=== PATIENT | female | born 1965 | race Caucasian/White ===

== ENCOUNTER 2016-12-19 15:50 | Emergency (ER) | payer BC, OTHER ==
[~2016-12-19] VITALS: Ht 162.6 cm; Wt 49.0 kg
[~2016-12-19 15:50] MED LIST: AMLO10TA2 PO; CYPR4TAB PO; ESTR1PAT10 TP; HYDR25TA9 PO; LEVE500T56 PO; LIDO700A4 TP; METO100T11 PO; MTH/1CAP PO; OXCA600T PO; POTA20TA12 PO; TERB250T PO; TOPI200T25 PO
[2016-12-19 17:17] VITALS: BP 193/105
[2016-12-19] MEDS ORDERED: HYDROCODONE/APAP 5/325MG TABLET. PO ONE (17:45)
[2016-12-19] MEDS ORDERED: HYDR-2666 PO (18:00)
--- NOTE | 2016-12-19 18:00 | PHYS DOC ---
Past Medical History Past Medical History: COPD, High Cholesterol, Hypertension, Hypothyroid, Seizure Past Surgical History: , Hysterectomy Additional Past Surgical Histo: vagal nerve stimulator Alcohol Use: None Drug Use: None Adult General Chief Complaint Chief Complaint: RIB PAIN [facility] HPI Patient is a 51 year old female who presents with from urgent care for left chest wall pain. She had a seizure last night and fell hitting her left chest wall. She has severe left lateral chest wall pain that is worse with thorax range of motion or breathing. Pain is achy and sharp. Fluctuates in intensity, but is constant. She denies difficulty breathing, cough, headache, head injury, neck pain, back pain, extremity pain, abdominal pain, nausea or vomiting, fever or chills. She did not sleep well last night due to the pain. She did not receive any pain medication from urgent care, but came with a CD of her x-rays. Review of Systems Review of Systems Constitutional: Denies fever or chills [] Eyes: Denies change in visual acuity, redness, or eye pain [] HENT: Denies nasal congestion or sore throat [] Respiratory: Denies cough or shortness of breath [] Cardiovascular: No additional information not addressed in HPI [] GI: Denies abdominal pain, nausea, vomiting, bloody stools or diarrhea [] : Denies dysuria or hematuria [] Musculoskeletal: Denies back pain or joint pain [] Integument: Denies rash or skin lesions [] Neurologic: Denies headache, focal weakness or sensory changes [] Endocrine: Denies polyuria or polydipsia [] Current Medications Current Medications Current Medications Medications (Trade) Dose Ordered Sig/[facility] Start Time Stop Time Status Last Admin Dose Admin Acetaminophen/ Hydrocodone Bitart (Lortab 5/325) 2 tab 1X ONCE 12/19/16 17:45 12/19/16 17:46 DC 12/19/16 17:42 2 TAB Allergies Allergies Allergies Coded Allergies Type Severity Reaction Last Updated Verified No Known Drug Allergies 03/21/15 No Physical Exam Physical Exam Constitutional: Well developed, well nourished, no acute distress, non-toxic appearance. [] HENT: Normocephalic, atraumatic, bilateral external ears normal, oropharynx moist, nose normal. [] Eyes: PERRLA, EOMI. [] Neck: Normal range of motion, supple. [] Cardiovascular:Heart rate regular rhythm [] Lungs & Thorax: Bilateral breath sounds clear to auscultation. Left anterior lateral lower chest wall tenderness with no visual or palpable abnormality other than minimal ecchymosis [] Abdomen: Bowel sounds normal, soft, no tenderness. [] Skin: Warm, dry, no erythema, no rash. [] Back: No tenderness, no CVA tenderness. [] Extremities: No tenderness, ROM intact, no edema. [] Neurologic: Alert and oriented X 3, normal motor function, normal sensory function, no focal deficits noted. [] Psychologic: Affect normal, judgement normal, mood normal. [] Current Patient Data Vital Signs Vital Signs Date Time Temp Pulse Resp B/P Pulse Ox O2 Delivery O2 Flow Rate FiO2 12/19/16 17:17 98.5 57 20 193/105 93 Room Air 98.5 Radiology/Procedures Radiology/Procedures Outside x-rays as interpreted by me showing a minimally displaced left rib fracture, no pneumothorax or hemothorax, otherwise no acute cardiopulmonary disease process Course & Med Decision Making Course & Med Decision Making Pertinent Labs and Imaging studies reviewed. (See chart for details) She was given incentive spirometer and taught how to use it. Will give pain medicine as well. Encouraged PCP follow-up closely. Return precautions given. She understands and agrees with plan. Dragon Disclaimer Dragon Disclaimer This electronic medical record was generated, in whole or in part, using a voice recognition dictation system. Departure Departure Impression: Primary Impression: Left rib fracture Disposition: HOME, SELF-CARE Condition: STABLE Referrals: PRETTY STRICKLAND MD (PCP) Patient Instructions: Incentive Spirometer, Rib Fracture, [id number] Additional Instructions: Take Tylenol or ibuprofen as needed for moderate pain. Take hydrocodone as needed for severe pain. Do not drink, drive or operate heavy machinery after taking hydrocodone as it may make you sleepy. Follow-up with your primary care doctor. Return for any concerns. Scripts Hydrocodone Bit/Acetaminophen (Hydrocodone-Apap 5-325 )1 Each Tablet1-2 Tab PO PRN Q4HRS PRN PAIN #20 TAB Prov:Daron AUGUSTINE MD 12/19/16 Problem Qualifiers Primary Impression: Left rib fracture Encounter type: initial encounter Rib fracture type: multiple ribs Fracture type: closed Qualified Code: S22.42XA - Multiple fractures of ribs, left side, initial encounter for closed fracture Daron AUGUSTINE MD Dec 19, 2016 18:00
== END 2016-12-19 19:56 | disposition home or self-care (01) ==
LOC: ER 15:50
DX: S22.42XA Multiple fractures of ribs, left side, initial encounter for closed fracture (principal); J44.9 Chronic obstructive pulmonary disease, unspecified; E78.00 Pure hypercholesterolemia, unspecified; I10 Essential (primary) hypertension; E03.9 Hypothyroidism, unspecified; X58.XXXA Exposure to other specified factors, initial encounter; Y93.89 Activity, other specified; Y92.89 Other specified places as the place of occurrence of the external cause; Y99.8 Other external cause status
CPT/HCPCS: 99284

== ENCOUNTER → 2017-06-27 | Outpatient (CLI) | payer BC ==
[~2017-06-27] MED LIST changes: +HYDR-2758 PO
--- NOTE | 2017-06-28 08:48 | RAD ---
DATE: 06/28/2017 EXAM: MAMMO MORENA SCREENING BILATERAL HISTORY: 52-year-old female for routine screening mammogram. COMPARISON: Previous mammogram from 2016 and 2014 This study was interpreted with the benefit of Computerized Aided Detection (CAD). FINDINGS: Breast Density: DENSE The breast Parenchyma is dense, which could reduce the sensitivity of mammography. Breast parenchyma level density D.. No suspicious calcifications, spiculated mass or architectural distortion. The nipples and skin are within normal limits. IMPRESSION: No mammographic evidence of malignancy. Stable mammogram. BI-RADS CATEGORY: 1 NEGATIVE RECOMMENDED FOLLOW-UP: 12M 12 MONTH FOLLOW-UP PQRS compliance statement: Patient information was entered into a reminder system with a target due date 06/28/2018 for the next mammogram. Mammography is a sensitive method for finding small breast cancers, but it does not detect them all and is not a substitute for careful clinical examination. A negative mammogram does not negate a clinically suspicious finding and should not result in delay in biopsying a clinically suspicious abnormality. "Our facility is accredited by the [employer] Mammography [employer]."
== END | disposition home or self-care (01) ==
LOC: KCIC MAMMO 13:39
PROVIDERS: ATTEND Obstetrics & Gynecology
DX: Z12.31 Encounter for screening mammogram for malignant neoplasm of breast (principal)
CPT/HCPCS: 77063; G0202; 77067

== ENCOUNTER → 2018-06-30 | Outpatient (CLI) | payer BC ==
[~2018-06-30] MED LIST changes: -CYPR4TAB PO; +CYPR4TAB31 PO; +METO-247 PO; -METO100T11 PO
--- NOTE | 2018-06-30 15:35 | KCIC ---
Exam: 3 view right knee x-ray HISTORY: Pain since a fall in April. FINDINGS: A total 3 images of the right knee were obtained. Moderate-sized knee joint effusion is present. Joint spaces are normal. No acute fracture or bone destruction. Soft tissues are unremarkable. There are no fractures or findings of bony destruction. No degenerative changes. IMPRESSION: Joint effusion. Electronically signed by: Abel Peralta MD (06/30/2018 3:32 PM) [facility] [place]
== END | disposition home or self-care (01) ==
LOC: KCIC 15:03
PROVIDERS: ATTEND Internal Medicine
DX: M25.461 Effusion, right knee (principal); I12.9 Hypertensive chronic kidney disease with stage 1 through stage 4 chronic kidney disease, or unspecified chronic kidney disease; N18.2 Chronic kidney disease, stage 2 (mild); E03.9 Hypothyroidism, unspecified; J44.9 Chronic obstructive pulmonary disease, unspecified; E78.00 Pure hypercholesterolemia, unspecified; Z72.0 Tobacco use; Z98.890 Other specified postprocedural states; Z90.710 Acquired absence of both cervix and uterus
CPT/HCPCS: 73562

== ENCOUNTER → 2020-05-26 | Outpatient (CLI) | payer OTHER ==
[~2020-05-26] MED LIST changes: -AMLO10TA2 PO; +AMLO10TA8 PO; +HYDR-2145 PO; -HYDR-2758 PO; +HYDR-2761 PO; -HYDR25TA9 PO; -OXCA600T PO; +OXCA600T9 PO
--- NOTE | 2020-05-26 14:46 | KCIC ---
INDICATION: Osteoporosis screening. Postmenopausal screening COMPARISON: None. TECHNIQUE: Bone densitometry was performed through the lumbar spine and proximal femur. FINDINGS: Lumbar Spine: BMD: 1.1 T-Score: 0.6 Proximal Femur: BMD: 0.7 T-Score: -2.0 IMPRESSION: 1. Lumbar spine falls within the normal range. 2. Proximal femur falls within the osteopenic range. Electronically signed by: Terry Leonard MD (05/26/2020 2:43 PM) [id number]
--- NOTE | 2020-05-26 15:04 | KCIC ---
Bilateral digital screening mammograms with 3-D tomosynthesis: Reason for examination: Routine screening. Comparison is made to previous studies dated back to 01/23/2015. Bilateral mammograms in CC and oblique projections were obtained with 2-D imaging and 3-D tomosynthesis imaging on a Siemens Inspiration unit and reviewed on the workstation. Interpretation was made with the benefit of CAD. The skin and nipples show no abnormalities. No abnormal axillary lymph nodes are seen. The breast parenchyma is extremely dense. (Breast density: Category D.) There are no dominant masses, suspicious calcifications or architectural distortion. A few punctate calcifications are seen. Impression: No evidence of malignancy. Recommend routine screening. Your patient's mammogram demonstrates that she has dense breast tissue (breast density category C or D), which could hide abnormalities, and if she has other risk factors for breast cancer that have been identified, she might benefit from supplemental screening tests that may be suggested by you as her ordering physician. Dense breast tissue, in and of itself, is a relatively common condition. Therefore, this information is not provided to cause undue concern, but rather to raise your awareness and to promote discussion with your patient regarding the presence of other risk factors, in addition to dense breast tissue. Your patient's mammography results will be sent to her. BI-RAD Category 2: Benign. "Our facility is accredited by the [employer] Mammography Program." This patient's information has been entered into a reminder system for the patient to be notified with the results of her examination and a target date for the next mammogram. Electronically signed by: Eri Collins MD (05/26/2020 3:01 PM) [id number]
== END | disposition home or self-care (01) ==
LOC: KCIC DEXA 12:47
PROVIDERS: ATTEND Obstetrics & Gynecology
DX: Z12.31 Encounter for screening mammogram for malignant neoplasm of breast (principal); Z01.419 Encounter for gynecological examination (general) (routine) without abnormal findings; M85.88 Other specified disorders of bone density and structure, other site
CPT/HCPCS: 77063; 77067; 77080

== ENCOUNTER → 2020-07-11 | Outpatient (CLI) | payer OTHER ==
--- NOTE | 2020-07-11 17:07 | KCIC ---
EXAM: HIP RIGHT 2V WITH PELVIS, RIGHT FEMUR, 2 VIEWS. HISTORY: Right hip and femoral pain. COMPARISON: None. FINDINGS: No fractures are identified. There is mildly decreased femoral head/neck offset anteriorly on the right. The joint spaces of both hips are maintained. Limited images of the right knee reveal grossly maintained joint spaces. There are surgical clips in the right lower quadrant. IMPRESSION: 1. Correlate for femoroacetabular impingement anteriorly on the right. Electronically signed by: Rafa Mireles MD (07/11/2020 5:04 PM) [id number]
== END | disposition home or self-care (01) ==
LOC: KCIC 14:05
PROVIDERS: ATTEND Internal Medicine
DX: M25.551 Pain in right hip (principal); M79.651 Pain in right thigh; Z98.890 Other specified postprocedural states
CPT/HCPCS: 73502; 73552

== ENCOUNTER 2021-06-17 14:01 | Emergency (ER) | payer OTHER ==
[~2021-06-17] VITALS: Ht 162.6 cm; Wt 46.0 kg
[~2021-06-17 14:01] MED LIST changes: +AMLO-187 PO; -AMLO10TA8 PO
[2021-06-17] MEDS ORDERED: IV NORMAL SALINE 1000ML BAG 1,650 ML IV SCH (16:00)
[2021-06-17] MEDS: MORPHINE SULFATE 2 MG/ML INJ. IV/SQ PRN ×2 (16:40→18:09)
[2021-06-17 16:42] LABS: BASO # 0.1 x10^3/uL (0.0-0.2); BASO % 0 % (0-3); EOS # 0.1 x10^3/uL (0.0-0.7); EOS % 0 % (0-3); HEMATOCRIT 45.6 % (36.0-47.0); HEMOGLOBIN 15.4 g/dL (12.0-15.5); LYMPH # 0.4 x10^3/uL (1.0-4.8); LYMPH % 3 % (24-48); MEAN CORPUSCULAR HEMOGLOBIN 30 pg (25-35); MEAN CORPUSCULAR HGB CONC 34 g/dL (31-37); MEAN CORPUSCULAR VOLUME 90 fL (79-100); MONO # 0.6 x10^3/uL (0.0-1.1); MONO % 3 % (0-9); NEUT # 15.4 x10^3/uL (1.8-7.7); NEUT % 93 % (31-73); PLATELET COUNT 187 x10^3/uL (140-400); RED BLOOD COUNT 5.09 x10^6/uL (3.50-5.40); RED CELL DISTRIBUTION WIDTH 14.1 % (11.5-14.5); WHITE BLOOD COUNT 16.5 x10^3/uL (4.0-11.0)
[2021-06-17 16:53] LABS: BILIRUBIN,URINE NEGATIVE (NEG); CLARITY,URINE CLOUDY; COLOR,URINE GREEN; NITRITE,URINE NEGATIVE (NEG); PH,URINE 6.5 (<5.0-8.0); PROTEIN,URINE 100 mg/dL (NEG-TRACE); UROBILINOGEN,URINE 0.2 mg/dL (0.2 mg/dL)
[2021-06-17 16:56] LABS: CALCIUM 8.9 mg/dL (8.5-10.1); CREATININE 0.9 mg/dL (0.6-1.0); GFR 64.3
[2021-06-17 17:02] LABS: ALBUMIN 3.6 g/dL (3.4-5.0); ALBUMIN/GLOBULIN RATIO 0.8 (1.0-1.7); TOTAL BILIRUBIN 0.3 mg/dL (0.2-1.0); TOTAL PROTEIN 7.9 g/dL (6.4-8.2)
[2021-06-17 17:03] LABS: BACTERIA,URINE 0 /HPF (0-FEW); WBC,URINE TNTC /HPF (0-4)
[2021-06-17 17:34] LABS: % BANDS 3 % (0-9); % EOS 2 % (0-5); % LYMPHS 1 % (24-48); % MONOS 6 % (0-10); % SEGS 88 % (35-66); PLT ESTIMATE ADEQUATE (ADEQUATE)
--- NOTE | 2021-06-17 17:59 | RAD ---
Exam: CT of abdomen and pelvis without contrast INDICATION: Abdominal pain TECHNIQUE: Sequential axial images through the abdomen and pelvis obtained without IV contrast. Sagit marlena and coronal reformatted images were reconstructed from the axial data and reviewed. Exposure: One or more of the following in the visualized dose reduction techniques were utilized for this examination: 1. Automated exposure control 2. Adjustment of the MA and/or KV according to patient size 3. Use of iterative of reconstructive technique Comparisons: None FINDINGS: Heart size is normal. No pericardial effusion. There is a 1.4 cm nodule at the left lower lobe series 2 image 12. No pleural effusion or thickening. Evaluation of the solid organs is limited secondary to noncontrast technique. Liver, spleen, pancreas and adrenals are unremarkable. Gallbladder is absent. No perinephric inflammation or hydronephrosis. No ureteral calculi are identified. Nonobstructing rig ht renal calculus noted. Bladder is decompressed not well evaluated. Uterus is absent. No abnormal adnexal mass. Large and small bowel are unremarkable. Appendix is nonidentified. No free intra-abdominal air or flu id. No obstruction. Abdominal aorta has normal course and caliber. No enlarged abdominal lymph nodes are identified. No suspicious osseous lesions or acute fractures. IMPRESSION: 1. Nonobstructing right renal calculus. No ureteral calculi or evidence for obstructive uropathy. 2. A 1.4 cm nodule at the left lower lobe which is new from 2016. This is concerning for a neoplasm. Recommend correlation with PET/CT and/or follow-up chest CT in 3 months to reassess. Electronically signed by: Curt Ho MD (06/17/2021 5:57 PM) [facility]
[2021-06-17 18:07] VITALS: BP 168/79
--- NOTE | 2021-06-17 18:29 | PHYS DOC ---
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 Patient states she is diagnosed with a UTI 3 weeks ago but did not get on antibiotics until yesterday when her doctor called in Macrobid for her. Patient states she has been taking the Macrobid since yesterday with no improvement. She is complaining of 8 out of 10 periumbilical's pain. Describes the pain as sharp and intermittent. Denies any nausea vomiting. She is also complaining of urgency, frequency and dysuria. (MIKE HARVEY LICENSED CHEMICAL SPRAY TECHNICIAN) Review of Systems: Review of Systems: Constitutional: Denies fever or chills. [] Eyes: Denies change in visual acuity. [] HENT: Denies nasal congestion or sore throat. [] Respiratory: Denies cough or shortness of breath. [] Cardiovascular: Denies chest pain or edema. [] GI: Reports periumbilical pain, denies nausea, vomiting, bloody stools or diarrhea. [] : Reports dysuria, urgency and frequency Musculoskeletal: Denies back pain or joint pain. [] Integument: Denies rash. [] Neurologic: Denies headache, focal weakness or sensory changes. [] Psychiatric: Denies depression or anxiety. [] (MIKE HARVEY LICENSED CHEMICAL SPRAY TECHNICIAN) Heart Score: C/O Chest Pain: N/A Risk Factors: Risk Factors: DM, Current or recent (<one month) smoker, HTN, HLP, family history of CAD, obesity. Risk Scores: Score 0 - 3: 2.5% MACE over next 6 weeks - Discharge Home Score 4 - 6: 20.3% MACE over next 6 weeks - Admit for Clinical Observation Score 7 - 10: 72.7% MACE over next 6 weeks - Early Invasive Strategies (MIKE HARVEY LICENSED CHEMICAL SPRAY TECHNICIAN) Current Medications: Current Medications Medications (Trade) Dose Ordered Sig/Karlo Start Time Stop Time Status Last Admin Dose Admin Morphine Sulfate (Morphine Sulfate) 2 mg PRN Q15MIN PRN 06/17/21 16:00 06/18/21 15:59 06/17/21 18:09 2 MG Sodium Chloride 1,650 ml @ 1,650 mls/hr Q1H 06/17/21 16:00 06/17/21 16:40 1,650 MLS/HR (MIKE HARVEY LICENSED CHEMICAL SPRAY TECHNICIAN) Allergies: Allergies: Allergies Coded Allergies Type Severity Reaction Last Updated Verified No Known Drug Allergies 03/21/15 No (MIKE HARVEY LICENSED CHEMICAL SPRAY TECHNICIAN) Physical Exam: PE: Constitutional: Well developed, well nourished, no acute distress, non-toxic appearance. [] HENT: Normocephalic, atraumatic, bilateral external ears normal, oropharynx moist, no oral exudates, nose normal. [] Eyes: PERRLA, EOMI, conjunctiva normal, no discharge. [] Neck: Normal range of motion, no tenderness, supple, no stridor. [] Cardiovascular:Heart rate regular rhythm, no murmur [] Lungs & Thorax: Bilateral breath sounds clear to auscultation [] Abdomen: Bowel sounds normal, soft, no tenderness, no masses, no pulsatile masses. [] Skin: Warm, dry, no erythema, no rash. [] Back: No tenderness, no CVA tenderness. [] Extremities: No tenderness, no cyanosis, no clubbing, ROM intact, no edema. [] Neurologic: Alert and oriented X 3, normal motor function, normal sensory function, no focal deficits noted. [] Psychologic: Affect normal, judgement normal, mood normal. [] (MIKE HARVEY LICENSED CHEMICAL SPRAY TECHNICIAN) Current Patient Data: Labs: Laboratory Tests Test 06/17/21 16:30 White Blood Count 16.5 x10^3/uL (4.0-11.0) H Red Blood Count 5.09 x10^6/uL (3.50-5.40) Hemoglobin 15.4 g/dL (12.0-15.5) Hematocrit 45.6 % (36.0-47.0) Mean Corpuscular Volume 90 fL (79-100) Mean Corpuscular Hemoglobin 30 pg (25-35) Mean Corpuscular Hemoglobin Concent 34 g/dL (31-37) Red Cell Distribution Width 14.1 % (11.5-14.5) Platelet Count 187 x10^3/uL (140-400) Neutrophils (%) (Auto) 93 % (31-73) H Lymphocytes (%) (Auto) 3 % (24-48) L Monocytes (%) (Auto) 3 % (0-9) Eosinophils (%) (Auto) 0 % (0-3) Basophils (%) (Auto) 0 % (0-3) Neutrophils # (Auto) 15.4 x10^3/uL (1.8-7.7) H Lymphocytes # (Auto) 0.4 x10^3/uL (1.0-4.8) L Monocytes # (Auto) 0.6 x10^3/uL (0.0-1.1) Eosinophils # (Auto) 0.1 x10^3/uL (0.0-0.7) Basophils # (Auto) 0.1 x10^3/uL (0.0-0.2) Segmented Neutrophils % 88 % (35-66) H Band Neutrophils % 3 % (0-9) Lymphocytes % 1 % (24-48) L Monocytes % 6 % (0-10) Eosinophils % 2 % (0-5) Platelet Estimate Adequate (ADEQUATE) Urine Collection Type Unknown Urine Color Green Urine Clarity Cloudy Urine pH 6.5 (<5.0-8.0) Urine Specific Zamora 1.020 (1.000-1.030) Urine Protein 100 mg/dL (NEG-TRACE) Urine Glucose (UA) Negative mg/dL (NEG) Urine Ketones (Stick) Negative mg/dL (NEG) Urine Blood Large (NEG) Urine Nitrite Negative (NEG) Urine Bilirubin Negative (NEG) Urine Urobilinogen Dipstick 0.2 mg/dL (0.2 mg/dL) Urine Leukocyte Esterase Moderate (NEG) Urine RBC 6-10 /HPF (0-2) Urine WBC Tntc /HPF (0-4) Urine Squamous Epithelial Cells Mod /LPF Urine Bacteria 0 /HPF (0-FEW) Urine Mucus Mod /LPF Sodium Level 129 mmol/L (136-145) L Potassium Level 4.0 mmol/L (3.5-5.1) Chloride Level 95 mmol/L (98-107) L Carbon Dioxide Level 23 mmol/L (21-32) Anion Gap 11 (6-14) Blood Urea Nitrogen 16 mg/dL (7-20) Creatinine 0.9 mg/dL (0.6-1.0) Estimated GFR (Cockcroft-Gault) 64.3 BUN/Creatinine Ratio 18 (6-20) Glucose Level 138 mg/dL (70-99) H Lactic Acid Level 1.6 mmol/L (0.4-2.0) Calcium Level 8.9 mg/dL (8.5-10.1) Total Bilirubin 0.3 mg/dL (0.2-1.0) Aspartate Amino Transferase (AST) 33 U/L (15-37) Alanine Aminotransferase (ALT) 25 U/L (14-59) Alkaline Phosphatase 86 U/L (46-116) Total Protein 7.9 g/dL (6.4-8.2) Albumin 3.6 g/dL (3.4-5.0) Albumin/Globulin Ratio 0.8 (1.0-1.7) L Laboratory Tests 06/17/21 16:30 Laboratory Tests 06/17/21 16:30 Vital Signs: Vital Signs Date Time Temp Pulse Resp B/P (MAP) Pulse Ox O2 Delivery O2 Flow Rate FiO2 06/17/21 18:09 18 97 06/17/21 18:07 107 168/79 (108) Room Air 06/17/21 15:43 100.5 100.5 (MIKE HARVEY APRN) EKG: EKG: [] (MIKE HARVEY APRN) Radiology/Procedures: Radiology/Procedures: []PROCEDURE: CT ABDOMEN PELVIS WO CONTRAST Exam: CT of abdomen and pelvis without contrast INDICATION: Abdominal pain TECHNIQUE: Sequential axial images through the abdomen and pelvis obtained without IV contrast. Sagittal and coronal reformatted images were reconstructed from the axial data and reviewed. Exposure: One or more of the following in the visualized dose reduction techniques were utilized for this examination: 1. Automated exposure control 2. Adjustment of the MA and/or KV according to patient size 3. Use of iterative of reconstructive technique Comparisons: None FINDINGS: Heart size is normal. No pericardial effusion. There is a 1.4 cm nodule at the left lower lobe series 2 image 12. No pleural effusion or thickening. Evaluation of the solid organs is limited secondary to noncontrast technique. Liver, spleen, pancreas and adrenals are unremarkable. Gallbladder is absent. No perinephric inflammation or hydronephrosis. No ureteral calculi are identified. Nonobstructing right renal calculus noted. Bladder is decompressed not well evaluated. Uterus is absent. No abnormal adnexal mass. Large and small bowel are unremarkable. Appendix is nonidentified. No free intra-abdominal air or fluid. No obstruction. Abdominal aorta has normal course and caliber. No enlarged abdominal lymph nodes are identified. No suspicious osseous lesions or acute fractures. IMPRESSION: 1. Nonobstructing right renal calculus. No ureteral calculi or evidence for obstructive uropathy. 2. A 1.4 cm nodule at the left lower lobe which is new from 2016. This is concerning for a neoplasm. Recommend correlation with PET/CT and/or follow-up chest CT in 3 months to reassess. Electronically signed by: Curt Benjamin MD (06/17/2021 5:57 PM) [facility] DICTATED and SIGNED BY: CURT BENJAMIN MD DATE: 06/17/21 [id number] 0 (MIKE HARVEY APRN) Course & Med Decision Making: Course & Med Decision Making Pertinent Labs and Imaging studies reviewed. (See chart for details) This is a 56-year-old female patient presented to the ED today complaining of periumbilical abdominal pain with urgency frequency and dysuria. Patient was diagnosed with UTI 3 weeks ago and started on Macrobid yesterday. She states she has no improvement to symptoms Vitals on arrival to the ED temperature 100.5, heart rate 102, respiration 20, blood pressure 183/89, O2 sats 95% on room air. CBC with a WBC of 16.5, CMP with sodium of 129. Urine noted for moderate amount of leukocytes. CT of the abdomen and pelvic was noted for nonobstructing right renal calculus. No ureteral calculi or evidence for obstructive uropathy. A 1.4 cm nodule at the left lower lobe which is new from 2016. This is concerning for a neoplasm. Recommend correlation with PET/CT and/or follow-up chest CT in 3 months to reassess. Results were communicated to patient and . She is adamant refusing to be admitted. She states she would like to go home. She is alert oriented x4 and able to make her own decisions. Instructed her to increase her sodium intake. Discharged on Cipro. Also given prescription for Pyridium and hydrocodone for pain. Follow-up with her urologist and PCP in the course of this week. Encouraged to return to the ED at any point symptoms worsen. She was also instructed to follow-up with her PCP for the lung nodule (MIKE HARVEY APRN) Course & Med Decision Making Patients Care and treatment plan provided by ER Nurse Practitioner. I was available for consult. Patient's chart reviewed. (VERÓNICA KOENIG I DO) Dragon Disclaimer: Dragon Disclaimer: This electronic medical record was generated, in whole or in part, using a voice recognition dictation system. (MIKE HARVEY APRN) Departure Departure Impression: Primary Impression: Acute cystitis Qualified Codes: N30.01 - Acute cystitis with hematuria Additional Impressions: Fever Qualified Codes: R50.9 - Fever, unspecified Hyponatremia Lung nodule Disposition: HOME / SELF CARE / HOMELESS Condition: STABLE Referrals: PRETTY STRICKLAND MD (PCP) follow up in the course of this week Patient Instructions: Fever, Adult, Hyponatremia, Urinary Tract Infection Additional Instructions: You were evaluated in the emergency room, you have a bladder infection. Please take the prescribed antibiotics until completed. Take the pain medicine as needed for pain. You are running a fever, take ibuprofen as needed for fever. You can take Tylenol for fever but remember you have Tylenol in the hydrocodone so do not take more than 4000 mg of Tylenol per day. Your sodium is also running low, increase your dietary sodium intake through foods like chips. He also have a mass in your lung showing up on your CAT scan. This needs to be followed up with your primary care doctor for outpatient work-up Scripts Hydrocodone Bit/Acetaminophen (HYDROCODONE-APAP 5-325 ) 1 Tab Tablet 1 TAB PO PRN Q6HRS PRN for PAIN, #14 TAB 0 Refills Prov: MIKE HARVEY APRN 06/17/21 Phenazopyridine Hcl (PYRIDIUM) 100 Mg Tablet 1 TAB PO TID for urinary discomfort for 2 Days, #6 TAB 0 Refills Prov: MIKE HARVEY APRN 06/17/21 Ciprofloxacin Hcl (CIPRO) 500 Mg Tablet 1 TAB PO BID for 7 Days, #14 TAB 0 Refills Prov: MIKE HARVEY APRN 06/17/21 MIKE HARVEY APRN Jun 17, 2021 18:29 VERÓNICA KOENIG DO Jun 21, 2021 18:10
[2021-06-17] MEDS ORDERED: CIPR500T94 PO (18:38)
[2021-06-17] MEDS ORDERED: HYDR-2761 PO (18:38)
[2021-06-17] MEDS ORDERED: PHEN100T82 PO (18:38)
== END 2021-06-17 18:52 | disposition home or self-care (01) ==
LOC: ER 14:01
DX: N30.01 Acute cystitis with hematuria (principal); E87.1 Hypo-osmolality and hyponatremia; R91.1 Solitary pulmonary nodule; J44.9 Chronic obstructive pulmonary disease, unspecified; E78.00 Pure hypercholesterolemia, unspecified; I10 Essential (primary) hypertension; E03.9 Hypothyroidism, unspecified; G40.909 Epilepsy, unspecified, not intractable, without status epilepticus; F17.200 Nicotine dependence, unspecified, uncomplicated
CPT/HCPCS: 36415; 74176; 80053; 81001; 83605; 84145; 85007; 85025; 87040; 87086; 96374; 96376; 99285; J2270; J7030

== ENCOUNTER → 2021-07-17 | Outpatient (CLI) | payer OTHER ==
[2021-06-17 18:07] VITALS: BP 168/79
[~2021-07-17] MED LIST changes: +BRIV100T PO; +CIPR500T94 PO; +LISI10TA16 PO; +LISI5TAB15 PO; +PHEN100T82 PO
--- NOTE | 2021-07-24 14:00 | OP ---
DATE OF SURGERY: 07/17/2021 ATTENDING PHYSICIAN: Aureliano Jerome MD The patient underwent a spirometry revealing an FEV1/FVC ratio of 94.28. FEV1 was 82% of predicted at 1.98 liters. FVC was 2.10 liters or 67% of predicted. Lung volumes were not completed. Diffusion capacity was preserved. IMPRESSION: 1. Spirometry revealing no evidence of airflow limitation. 2. Lung volumes not performed. 3. Diffusion capacity was preserved. GERALDO DR: Joy TID: [id number]
== END ==
LOC: PF 10:45
PROVIDERS: ATTEND Internal Medicine Pulmonary Disease
DX: R91.8 Other nonspecific abnormal finding of lung field (principal)
CPT/HCPCS: 94010; 94729

== ENCOUNTER → 2021-07-20 | Outpatient (CLI) | payer OTHER ==
[~2021-07-20] MED LIST changes: -BRIV100T PO; -LISI10TA16 PO; -LISI5TAB15 PO
--- NOTE | 2021-07-20 13:43 | RAD ---
EXAM: Dual modality PET-CT Scan DATE: 07/20/2021 RADIOPHARMACEUTICAL: 15 mCi F-18 fluorodeoxyglucose (FDG) IV. CLINICAL HISTORY: Left lower lobe pulmonary nodule. COMPARISON: CT dated 06/17/2021. TECHNIQUE: Approximately 45 minutes after tracer administration, routine, attenuation-corrected Posit azul Emission Tomography (PET) images were obtained from the level of the base of the skull through th e level of the mid thighs. Tomographic reconstructions are reviewed in coronal, transaxial and sagitt al planes. Non-contrast CT imaging was performed for attenuation correction and localization purpose s only. These images do not constitute a diagnostic-quality CT examination and were not used to diag nose disease independently of the PET images. The blood glucose level was 92 mg/dL at the time of FDG administration. *One or more of the following individualized dose reduction techniques were utilized for this examina tion: 1. Automated exposure control. 2. Adjustment of the mA and/or kV according to patient size. 3. Use of iterative reconstruction technique. FINDINGS: There is increased radiotracer activity within SUV of 4.8 associated with a 1.4 cm left low er lobe pulmonary nodule, the appearance of which favors neoplasm. There is also increased radiotrace r activity associated with a 1.9 cm nodule with surrounding groundglass within the superior segment o f the left lower lobe with an SUV of 4.0. There is increased radiotracer activity within SUV of 2.1 w ithin a 9 mm spiculated right upper lobe pulmonary nodule. There is mild increased radiotracer activi ty associated with tiny groundglass nodular opacities within the right lower lobe with an SUV of 1.3, likely infectious in etiology. There is no significant radiotracer activity above the blood pool ass ociated with prominent mediastinal and hilar lymph nodes. There is no additional abnormal radiotracer activity. The CT portion of the exam demonstrates a 1.4 cm left lower lobe pulmonary nodule. There is a 1.9 cm nodular opacity with surrounding groundglass within the superior segment of the left lower lobe. Ther e is a 9 mm spiculated nodule within the superior right upper lobe. There is lingular and medial righ t middle lobe and left basilar atelectasis or scarring. There are tiny groundglass opacities within t he medial right lower lobe. There is emphysema with biapical pleural parenchymal scarring. The heart is upper normal in size. There is aortic and coronary artery atherosclerosis. There are pro minent mediastinal lymph nodes. For reference purposes, there is a 1.3 cm right paratracheal lymph no de. There is a heterogeneous thyroid containing calcifications. There is a left chest wall generator with vagal nerve stimulator leads overlying the left neck. There is calcified plaque involving the ca rotid bifurcations. Evaluation of the skull base and visualized portions of the inferior brain are unremarkable. No neck lymphadenopathy is seen. No hepatic lesion is seen. The gallbladder is absent. The pancreas, spleen a nd stomach are unremarkable. There is thickening of the left adrenal gland without a discrete nodule. There are tiny nonobstructing right renal stones. There is a large amount of stool within the colon. The urinary bladder is distended. The uterus is absent. There are degenerative changes involving the spine. No suspicious or acute osseous finding is seen. IMPRESSION: 1. Radiotracer avid 1.4 cm left lower lobe pulmonary nodule with an SUV of 4.8. The lesion configurat ion and degree of radiotracer activity favors malignancy. 2. Radiotracer avid 1.9 cm nodular opacity with surrounding groundglass within the superior segment o f the left lower lobe with an SUV of 4.0. This may also be neoplastic. However, the possibility of an infectious etiology is not excluded. 3. Radiotracer avid 9 mm spiculated nodule within the right upper lobe with an SUV of 2.1. This degre e of radiotracer activity in a nodule of this size and the nodule configuration favors malignancy. 4. Mild radiotracer activity within SUV of 1.3 associated with tiny groundglass opacities within the right lower lobe, the appearance of which favors an infectious etiology. Correlate for pneumonia/pneu monitis. 5. No significant radiotracer activity associated with prominent mediastinal or hilar lymph nodes. 6. Emphysema with biapical pleural parenchymal scarring. 7. Please refer to the above report for additional findings regarding the non-PET portion of the exam . Electronically signed by: Olamide Waldrop MD (07/20/2021 1:41 PM) [id number]
== END ==
LOC: PETSC 09:17
PROVIDERS: ATTEND Internal Medicine Pulmonary Disease
DX: R91.8 Other nonspecific abnormal finding of lung field (principal); J43.9 Emphysema, unspecified; I70.0 Atherosclerosis of aorta; I25.10 Atherosclerotic heart disease of native coronary artery without angina pectoris; M47.819 Spondylosis without myelopathy or radiculopathy, site unspecified; Z90.49 Acquired absence of other specified parts of digestive tract; Z90.710 Acquired absence of both cervix and uterus; F17.210 Nicotine dependence, cigarettes, uncomplicated
CPT/HCPCS: 78815; A9552

== ENCOUNTER 2021-08-02 08:12 | Outpatient (CLI) | payer OTHER ==
[~2021-08-02] VITALS: Ht 160 cm; Wt 50.0 kg
[2021-08-02] VITALS (17 sets, daily range): BP systolic 136–186; BP diastolic 74–99
[2021-08-02] MEDS ORDERED: LIDOCAINE WITH 8.4% SOD BICARB 3 ML DISP.SYRIN. ONE (09:38)
[2021-08-02] MEDS ORDERED: MIDAZOLAM HCL/PF 2 MG/2 ML VIAL. ONE (09:43)
[2021-08-02] MEDS ORDERED: fentaNYL PF VIAL 100 MCG/2 ML VIAL ONE (09:43)
[2021-08-02 09:47] LABS: BASO # 0.1 x10^3/uL (0.0-0.2); BASO % 2 % (0-3); EOS # 1.3 x10^3/uL (0.0-0.7); EOS % 18 % (0-3); HEMATOCRIT 36.5 % (36.0-47.0); HEMOGLOBIN 12.2 g/dL (12.0-15.5); LYMPH # 1.7 x10^3/uL (1.0-4.8); LYMPH % 24 % (24-48); MEAN CORPUSCULAR HEMOGLOBIN 30 pg (25-35); MEAN CORPUSCULAR HGB CONC 34 g/dL (31-37); MEAN CORPUSCULAR VOLUME 88 fL (79-100); MONO # 0.8 x10^3/uL (0.0-1.1); MONO % 12 % (0-9); NEUT # 3.1 x10^3/uL (1.8-7.7); NEUT % 44 % (31-73); PLATELET COUNT 349 x10^3/uL (140-400); RED BLOOD COUNT 4.13 x10^6/uL (3.50-5.40); RED CELL DISTRIBUTION WIDTH 14.5 % (11.5-14.5)
[2021-08-02 10:00] LABS: PROTHROMBIN TIME PATIENT 12.3 SEC (11.7-14.0)
[2021-08-02] MEDS ORDERED: LISI10TA16 PO (10:15)
[2021-08-02] MEDS ORDERED: BRIV100T PO (10:17)
[2021-08-02 10:30] LABS: % EOS 14 % (0-5); % LYMPHS 29 % (24-48); % MONOS 8 % (0-10); % SEGS 49 % (35-66)
[2021-08-02 10:31] LABS: PLT ESTIMATE ADEQUATE (ADEQUATE); TARGET CELLS OCC
[2021-08-02] MEDS ORDERED: MIDAZOLAM HCL/PF 2 MG/2 ML VIAL. IV ONE (10:45)
[2021-08-02] MEDS ORDERED: fentaNYL PF VIAL 100 MCG/2 ML VIAL IV ONE (10:45)
[2021-08-02] MEDS ORDERED: LIDOCAINE WITH 8.4% SOD BICARB 3 ML DISP.SYRIN. IJ ONE (10:45)
[2021-08-02] MEDS ORDERED: LISI-517 PO (11:02)
--- NOTE | 2021-08-02 14:09 | NUR ---
Patient discharged to home accompanied by spouse. All discharge instructions reviewed with client and spouse. Pt verbalized an understanding. PIV site removed without difficulty. No respiratory distress noted. All personal belonging taken, pt escorted to front entrance per w/c to private vehicle.
--- NOTE | 2021-08-03 08:00 | RAD ---
CT-guided biopsy, left lower lobe select nodule 08/02/2021 INDICATION: Left lower lobe nodule. COMPARISON STUDY: PET/CT July 20, 2021 Consent: The procedure was explained in its entirety to the patient or the patients designated repres entative by a member of the treatment team, including a discussion of the risks, benefits and commonl y accepted alternatives to the procedure, as well as the expected consequences of no therapy whatsoev er. Discussion of the risks included, but was not limited to, those that are most frequent and thos e that are rare but possibly severe or life-threatening, as well as the possibility of unforeseen com plications. Discussion: The patient was brought to the CT scanner and placed in the supine position. A timeout pr ocedure was performed. 1% lidocaine was administered for local anesthesia. CT imaging was performed r edemonstrating a rounded nodule left lower lobe grossly unchanged from comparison study. Under interm ittent CT guidance a 17-gauge needle was advanced to the periphery of the nodule. Core biopsy was obt ained. The patient had episodic coughing following biopsy and imaging demonstrated a mild to moderate perilesional hemorrhage with obscuration of the nodule. No additional biopsies were performed. The n eedle was removed. Repeat CT imaging demonstrates similar perilesional hemorrhage without evidence of pneumothorax. Sterile dressings were applied. The procedures performed under conscious sedation including continuous cardiopulmonary monitoring via a dedicated sedation nurse. Dpzv-ak-cdic sedation time 33 minutes IMPRESSION: CT-guided biopsy, left lower lobe nodule. CT DOSING PQRS STATEMENT: One or more of the following individualized dose reduction techniques were utilized for this examinat ion: 1. Automated exposure control 2. Adjustment of the mA and/or kV according to patient size 3. Use of iterative reconstruction technique Electronically signed by: Rolando Mcclure MD (08/03/2021 7:57 AM) [id number]
--- NOTE | 2021-08-03 08:00 | RAD ---
EXAMINATION: Chest radiograph. VIEWS: Single view COMPARISON: PET/CT dated 07/20/2021 INDICATION:56 years, Female, post lung biopsy. FINDINGS: Normal cardiomediastinal silhouette. Postbiopsy changes in the left lung base with patchy airspace op acities. No pleural effusion or pneumothorax. No acute osseous process. Left chest wall jugular stimu lator device. Left fifth rib chronic deformity. IMPRESSION: Postbiopsy changes in the left lung base with no pneumothorax. Electronically signed by: Brayden Metzger MD (08/03/2021 7:58 AM) [id number]
== END 2021-08-02 13:55 | disposition home or self-care (01) ==
LOC: INTRAD 08:12
PROVIDERS: ATTEND Internal Medicine Pulmonary Disease
DX: R91.8 Other nonspecific abnormal finding of lung field (principal); I10 Essential (primary) hypertension; J44.9 Chronic obstructive pulmonary disease, unspecified; E03.9 Hypothyroidism, unspecified; F17.210 Nicotine dependence, cigarettes, uncomplicated; Z79.899 Other long term (current) drug therapy; Z90.710 Acquired absence of both cervix and uterus; Z98.890 Other specified postprocedural states; Z20.822 Contact with and (suspected) exposure to COVID-19; Z88.8 Allergy status to other drugs, medicaments and biological substances
CPT/HCPCS: 32408; 36415; 71045; 85007; 85025; 85610; 87426; 99152; 99153; J2250; J3010; J3490; 88305; 88341; 88342

== ENCOUNTER → 2021-08-16 | Outpatient (CLI) | payer OTHER ==
[2021-08-02 13:30] VITALS: BP 156/90
[~2021-08-16] MED LIST changes: +BRIV100T PO; +LISI-517 PO; +LISI10TA16 PO
[2021-08-16 09:32] LABS: BASO # 0.1 x10^3/uL (0.0-0.2); BASO % 3 % (0-3); EOS # 1.1 x10^3/uL (0.0-0.7); EOS % 22 % (0-3); HEMATOCRIT 39.8 % (36.0-47.0); HEMOGLOBIN 13.3 g/dL (12.0-15.5); LYMPH # 1.4 x10^3/uL (1.0-4.8); LYMPH % 28 % (24-48); MEAN CORPUSCULAR HEMOGLOBIN 30 pg (25-35); MEAN CORPUSCULAR HGB CONC 33 g/dL (31-37); MEAN CORPUSCULAR VOLUME 89 fL (79-100); MONO # 0.6 x10^3/uL (0.0-1.1); MONO % 13 % (0-9); NEUT # 1.7 x10^3/uL (1.8-7.7); NEUT % 34 % (31-73); PLATELET COUNT 250 x10^3/uL (140-400); RED BLOOD COUNT 4.47 x10^6/uL (3.50-5.40)
[2021-08-16 09:53] LABS: % BASOS 1 % (0-3); % EOS 18 % (0-5); % LYMPHS 43 % (24-48); % MONOS 7 % (0-10); % MYELOS 1 % (0-0); % SEGS 30 % (35-66); PLT ESTIMATE ADEQUATE (ADEQUATE)
[2021-08-16 10:07] LABS: CALCIUM 8.3 mg/dL (8.5-10.1); CREATININE 0.7 mg/dL (0.6-1.0); GFR 85.9; POTASSIUM 4.3 mmol/L (3.5-5.1)
[2021-08-16 10:14] LABS: ALBUMIN 3.5 g/dL (3.4-5.0); ALBUMIN/GLOBULIN RATIO 0.7 (1.0-1.7); TOTAL BILIRUBIN 0.2 mg/dL (0.2-1.0); TOTAL PROTEIN 8.3 g/dL (6.4-8.2)
== END ==
LOC: ONCLAB 08:53
PROVIDERS: ATTEND Internal Medicine Hematology & Oncology
DX: I10 Essential (primary) hypertension (principal); E03.9 Hypothyroidism, unspecified
CPT/HCPCS: 36415; 80053; 85007; 85025

== ENCOUNTER → 2021-08-27 | Outpatient (CLI) | payer OTHER ==
[2021-08-02 13:30] VITALS: BP 156/90
[~2021-08-27] MED LIST changes: +IOHEXOL 300 MG/ML 50 ML VIAL. IV ONE; -LISI-517 PO; +LISI5TAB15 PO
--- NOTE | 2021-08-27 11:42 | KCIC ---
EXAM: Head CT with and without contrast. HISTORY: Non-small cell lung cancer. TECHNIQUE: Computed tomographic images of the head were obtained prior to and following the administr ation of intravenous contrast. *One or more of the following individualized dose reduction techniques were utilized for this examina tion: 1. Automated exposure control. 2. Adjustment of the mA and/or kV according to patient size. 3. Use of iterative reconstruction technique. COMPARISON: PET/CT dated 07/20/2021. FINDINGS: There is no acute or subacute extra-axial or intraparenchymal hemorrhage. There is no mass effect or midline shift. There is no hydrocephalus. No abnormal enhancing lesion is seen. There is a small focus of linear enhancement along the right parietal lobe sulcus likely due to prominent cortic al vessel. The [place]-white matter differential pattern is intact. There is a tiny fluid level within t he right maxillary sinus. The mastoid air cells are clear. There is no suspicious calvarial lesion. IMPRESSION: No acute intracranial finding or evidence of intracranial metastatic disease. Electronically signed by: Olamide Waldrop MD (08/27/2021 11:40 AM) [id number]
== END ==
LOC: KCIC CT 11:01
PROVIDERS: ATTEND Internal Medicine Hematology & Oncology
DX: C34.32 Malignant neoplasm of lower lobe, left bronchus or lung (principal)
CPT/HCPCS: 70470; Q9967

== ENCOUNTER → 2022-01-21 | Outpatient (CLI) | payer OTHER ==
[2021-08-02 13:30] VITALS: BP 156/90
[~2022-01-21] MED LIST changes: -IOHEXOL 300 MG/ML 50 ML VIAL. IV ONE
--- NOTE | 2022-01-22 10:26 | RAD ---
PQRS Compliance Statement: One or more of the following individualized dose reduction techniques were utilized for this examinat ion: 1. Automated exposure control 2. Adjustment of the mA and/or kV according to patient size 3. Use of iterative reconstruction technique CT THORAX WO 01/21/2022 3:31 PM Indication: Non-small cell lung cancer COMPARISON: PET/CT 07/20/2021 TECHNIQUE: Multiple axial CT images of the chest were obtained without intravenous contrast. Coronal and sagittal reformats are provided. FINDINGS: There is a spiculated solid noncalcified pulmonary nodule in the right upper lobe measuring 11 mm (se zuleyma 3, image 15). Interval resolution of nodular consolidative change in the super segment left lowe r lobe. There is faint residual groundglass opacity identified within the area of previously seen trey id noncalcified pulmonary nodule within the left lower lobe. No residual solid component is visualize d. No pleural effusions, pulmonary vascular congestion or pneumothorax. Biapical pleural parenchymal scarring, right greater than left. Mild centrilobular pulmonary emphysema. Left chest wall battery pa ck is identified. Heart size within normal limits. Three-vessel coronary artery vascular calcificatio ns are present. Thoracic aorta is normal in course and caliber. No pericardial effusion. No pathologi bernice enlarged thoracic lymph nodes. Thoracic esophagus is normal in appearance. Stable appearance of the upper abdomen. No suspicious osseous abnormality is identified. IMPRESSION: 1. Interval resolution of nodular consolidative areas within the super segment left lower lobe and ce ntral left lower lobe described on prior PET/CT. Correlate with any interval treatment. There is resi dual groundglass change within the left lower lobe which may represent residual pneumonitis or scarri ng. 2. There is a persistent solid noncalcified pulmonary nodule within the right upper lobe with spicula elif morphology measuring 11 mm. Findings remain suspicious for malignancy. Overall size may be margin ally increased since the prior PET/CT where it previously measured 9 mm. 3. No significant aguilar disease. Centrilobular pulmonary emphysema. Electronically signed by: Leni Khan MD (01/22/2022 10:24 AM) [facility]
== END ==
LOC: CT 15:22
PROVIDERS: ATTEND Radiology Radiation Oncology
DX: C34.32 Malignant neoplasm of lower lobe, left bronchus or lung (principal); R91.1 Solitary pulmonary nodule; J43.2 Centrilobular emphysema; I25.10 Atherosclerotic heart disease of native coronary artery without angina pectoris
CPT/HCPCS: 71250

== ENCOUNTER → 2022-01-28 | Outpatient (CLI) | payer OTHER ==
[2021-08-02 13:30] VITALS: BP 156/90
== END ==
LOC: CT 12:50
PROVIDERS: ATTEND Radiology Radiation Oncology
DX: C34.32 Malignant neoplasm of lower lobe, left bronchus or lung (principal)
CPT/HCPCS: 76380

== ENCOUNTER → 2022-03-01 | Outpatient (CLI) | payer OTHER ==
[2021-08-02 13:30] VITALS: BP 156/90
--- NOTE | 2022-03-04 09:29 | KCIC ---
EXAM: XR LUMBAR SPINE 4+V, XR THORACIC SPINE 3VIEWS 03/01/2022 3:45 PM CLINICAL INDICATION: Mid back pain one week after lifting 20 pounds COMPARISON: CT chest 01/21/2022 TECHNIQUE: AP, lateral, and swimmer's views of the thoracic spine. AP, right and left oblique, later al, and coned-down lateral views of the lumbar spine FINDINGS: Thoracic spine: On AP view, there is a new nodular opacity in the right upper lobe measuring 3.3 x 3. 5 cm. There is no acute fracture. Alignment is normal. Disc spaces are maintained. Lumbar spine: There are 5 nonrib-bearing lumbar vertebral bodies. There is 2 mm retrolisthesis of L3 on L4 and L4-L5 There is mild dextroscoliosis centered at L2-L3. No acute fracture of the lumbar spin e. Mild disc space narrowing throughout the lumbar spine. There are surgical clips in the right hemia bdomen and pelvis. Vascular calcifications in the aorta and iliac arteries. IMPRESSION: 1. No acute osseous abnormality of the thoracic or lumbar spine. 2. New 3.5 cm nodular opacity in the right upper lobe suspicious for malignancy. Electronically signed by: Nette Bourne MD (03/04/2022 9:27 AM) [id number]
== END ==
LOC: KCIC 16:04
PROVIDERS: ATTEND Internal Medicine
DX: R91.8 Other nonspecific abnormal finding of lung field (principal); I70.8 Atherosclerosis of other arteries; M43.16 Spondylolisthesis, lumbar region; M48.061 Spinal stenosis, lumbar region without neurogenic claudication; M41.86 Other forms of scoliosis, lumbar region; Z98.890 Other specified postprocedural states
CPT/HCPCS: 72072; 72110